=== PATIENT | male | born 1950 | race African-American/Black ===

== ENCOUNTER 2020-04-23 11:00 | Outpatient (RCR) | payer MEDICARE, SELFPAY ==
--- NOTE | 2020-06-02 09:55 | MHC.PT.DC ---
[facility] [place] [facility] [place] [facility] [place] [facility] [address]ay[address] [phone] F: [phone] F: [phone] F: [phone] F: [phone] Physical Therapy Discharge Report Diagnosis: S/P RIGHT TKA Date of Surgery: 02/11/20 Date of Evaluation: 02/11/20 Date of Discharge: 06/02/20 Treatments to Date: 8 Cancellations to Date: 2 No Shows to Date: 2 Discharge Status: Improved Function Patient Elected to Stop Discharge Summary: AT LAST ATTENDED VISITS CHRISTOPHER CONTINUED TO BE CHALLENGED WITH SLS ACTIVITIES AND BENEFITTED FROM CUING FOR IMPROVED FORM. ROM WAS IMPROVING BUT STILL LACKING END RANGE FLEXION. WE DISCUSSED AT LENGTH THE IMPORTANCE OF CONTINUED THERAPY AND COMPLIANCE WITH HEP TO ENSURE BEST OUTCOMES, Pt HOWEVER DID NOT SCHEDULE FURTHER VISITS. HE HAS NOT BEEN SEEN IN OUR OFFICE FOR OVER 30 DAYS AND IS DISCHARGED AT THIS TIME. Electronically signed by: ENEDINA TURCIOS PT, DPT Please sign and return to therapist. Thank you for your referral.
== END 2020-06-02 09:59 | disposition other institution (70) ==
LOC: HO.PT 11:00
PROVIDERS: PCP Family Medicine; Visit Provider Physician Assistant
DX: Z96.651 Presence of right artificial knee joint (principal)
CPT/HCPCS: 97110; 97530; 99212

== ENCOUNTER 2020-07-15 13:04 | Outpatient (REF) | payer MEDICARE, SELFPAY ==
[2020-07-15 14:41] LABS: Estimated Average Glucose 169 mg/dL; Hemoglobin A1c % 7.5 %
[2020-07-15 14:55] LABS: Anion Gap 14 (12-20); Blood Urea Nitrogen 15 mg/dL (9-16); Carbon Dioxide 29 mmol/L (22-29); Chloride 102 mmol/L (96-108); Estimated Glomerular Filt Rate > 60; Glucose Fasting 137 mg/dL (60-99); Potassium 4.1 mmol/l (3.3-5.1); Sodium 141 mmol/L (135-145)
[2020-07-15 15:04] LABS: Creatinine Urine 282.27 mg/dL; Microalbum/Creatinine Ratio Ur 20.5 ug/mg cr
== END 2020-07-15 13:05 | disposition home or self-care (01) ==
LOC: HO.LAB 13:04
PROVIDERS: PCP Family Medicine; Visit Provider Family Medicine
DX: I10 Essential (primary) hypertension (principal); E11.9 Type 2 diabetes mellitus without complications
CPT/HCPCS: 36415; 80051; 82043; 82565; 82947; 83036; 84520

== ENCOUNTER 2021-01-08 14:17 | Outpatient (REF) | payer MEDICARE, SELFPAY ==
[2021-01-08 16:06] LABS: Estimated Average Glucose 180 mg/dL; Hemoglobin A1c % 7.9 %
[2021-01-08 16:12] LABS: Alanine Aminotransferase 28 U/L (0-40); Anion Gap 13 (12-20); Aspartate Amino Transferase 26 U/L (5-37); Blood Urea Nitrogen 16 mg/dL (9-16); Carbon Dioxide 29 mmol/L (22-29); Chloride 102 mmol/L (96-108); Estimated Glomerular Filt Rate > 60; Glucose Fasting 143 mg/dL (60-99); Potassium 4.3 mmol/L (3.3-5.1); Sodium 140 mmol/L (135-145)
[2021-01-08 16:42] LABS: Prostate Specific Antigen 3.08 ng/mL (<0.05-4.0)
[2021-01-08 16:45] LABS: Creatinine Urine 214.82 mg/dL; Microalbum/Creatinine Ratio Ur 10.7 ug/mg cr
== END 2021-01-08 14:18 | disposition home or self-care (01) ==
LOC: HO.LAB 14:17
PROVIDERS: PCP Family Medicine; Visit Provider Family Medicine
DX: Z12.5 Encounter for screening for malignant neoplasm of prostate (principal); I10 Essential (primary) hypertension; E11.9 Type 2 diabetes mellitus without complications; R35.1 Nocturia
CPT/HCPCS: 36415; 80051; 82043; 82565; 82947; 83036; 84153; 84450; 84460; 84520

== ENCOUNTER 2021-08-04 12:28 | Outpatient (REF) | payer MEDICARE, SELFPAY ==
[2021-08-04 14:12] LABS: Estimated Average Glucose 194 mg/dL; Hemoglobin A1c % 8.4 %
[2021-08-04 14:27] LABS: Anion Gap 12 (12-20); Blood Urea Nitrogen 15 mg/dL (9-16); Carbon Dioxide 32 mmol/L (22-29); Chloride 104 mmol/L (96-108); Estimated Glomerular Filt Rate > 60; Glucose Fasting 127 mg/dL (60-99); Potassium 3.9 mmol/L (3.3-5.1); Sodium 144 mmol/L (135-145)
== END 2021-08-04 12:29 | disposition home or self-care (01) ==
LOC: HO.LAB 12:28
PROVIDERS: PCP Family Medicine; Visit Provider Family Medicine
DX: I10 Essential (primary) hypertension (principal); E11.9 Type 2 diabetes mellitus without complications
CPT/HCPCS: 36415; 80051; 82565; 82947; 83036; 84520

== ENCOUNTER → 2021-12-03 15:04 | Outpatient (REF) | payer MEDICARE, SELFPAY ==
--- NOTE | 2021-12-03 15:10 | ECG_ITS ---
Test Reason : WEAKNESS, SYNCOPE Blood Pressure : / mmHG Vent. Rate : 071 BPM Atrial Rate : 071 BPM P-R Int : 186 ms QRS Dur : 138 ms QT Int : 432 ms P-R-T Axes : 061 -54 036 degrees QTc Int : 469 ms Normal sinus rhythm Right bundle branch block Left anterior fascicular block Bifascicular block Abnormal ECG When compared with ECG of 10-JAN-2020 11:55, (RBBB and left anterior fascicular block) is now Present Referred By: Zachery Cordero Electronically Signed By:Pal Hurtado
== END ==
LOC: HO.CARD 15:04
PROVIDERS: PCP Family Medicine; Visit Provider Family Medicine
DX: R55 Syncope and collapse (principal); R53.1 Weakness; I45.2 Bifascicular block
CPT/HCPCS: 93005

== ENCOUNTER 2022-04-29 13:04 | Outpatient (REF) | payer MEDICARE, SELFPAY ==
[2022-04-29 13:14] LABS: MANUAL DIFF FLAG NO
[2022-04-29 14:14] LABS: Basophils Percent Auto 0.2 % (0-2); Eosinophils Absolute Auto 0.1 X10*3/uL (0.0-0.4); Eosinophils Percent Auto 2.9 % (0-4); Hematocrit 37.9 % (42.0-52.0); Hemoglobin 12.7 g/dl (14.0-18.0); Imm Gran Abs Auto 0.01 X10*3/uL (0.00-0.03); Imm Gran Pct Auto 0.2 % (0.0-0.4); Lymphocytes Absolute Auto 1.8 X10*3/uL (1.2-4.9); Lymphocytes Percent Auto 37.7 % (20-40); Mean Corpuscular HGB Conc 33.5 g/dl (31.0-36.0); Mean Corpuscular Hemoglobin 29.9 pg (27.0-33.0); Mean Corpuscular Volume 89.2 fL (80.0-98.0); Mean Platelet Volume 10.1 fL (9.4-12.4); Monocytes Absolute Auto 0.4 X10*3/uL (0.1-1.2); Monocytes Percent Auto 7.7 % (2-11); Neutrophils Absolute Auto 2.5 x10*3/uL (2.0-8.3); Neutrophils Percent Auto 51.3 % (45-73); Platelet Count 243 X10*3/uL (160-400); Red Blood Count 4.25 X10*6/uL (4.60-5.80); Red Cell Distribution Width 12.5 % (11.0-16.0); White Blood Count 4.8 X10*3/uL (4.8-10.8)
[2022-04-29 14:23] LABS: Estimated Average Glucose 186 mg/dL; Hemoglobin A1c % 8.1 %
[2022-04-29 15:00] LABS: Glucose Fasting 162 mg/dL (60-99); Iron 96 mcg/dL (45-160); Percent Iron Saturation 34 % (15-50); Total Iron Binding Capacity 282 mcg/dL (228-428); Unsaturated Iron Binding 186 ug/dL
[2022-04-29 15:23] LABS: Folate 9.6 ng/mL (> or = 4.0); Vitamin B12 471 pg/mL (200-900)
== END 2022-04-29 13:05 | disposition home or self-care (01) ==
LOC: HO.LAB 13:04
PROVIDERS: PCP Family Medicine; Visit Provider Family Medicine
DX: D64.9 Anemia, unspecified (principal); E11.9 Type 2 diabetes mellitus without complications
CPT/HCPCS: 36415; 82607; 82746; 82947; 83036; 83540; 85025

== ENCOUNTER 2022-06-11 13:08 | Outpatient (REF) | payer MEDICARE, SELFPAY ==
--- NOTE | ~2022-06-11 | XR_ITS ---
EXAMINATION: XR LUMBOSACRAL SPINE CLINICAL INFORMATION: Left sacroiliitis COMPARISON: None TECHNIQUE: Three views of the lumbosacral spine. FINDINGS: There is normal lumbar lordosis. The vertebral heights and alignment is normal. There is loss of L1-L2, L2-L3 L4-L5 and L5-S1 disc heights with large bridging osteophytes. No acute fracture, dislocation or lytic process seen. The SI joints are symmetrical and normal. XR/XR lumbar spine 2-3V IMPRESSION: Degenerative disc changes with large bridging osteophytes throughout lumbar spine. No visible acute fracture, dislocation or lytic process seen.
== END 2022-06-11 13:09 | disposition home or self-care (01) ==
LOC: HO.XRAY 13:08
PROVIDERS: PCP Family Medicine; Visit Provider Family Medicine
DX: M54.50 Low back pain, unspecified (principal)
CPT/HCPCS: 72100

== ENCOUNTER 2022-08-31 12:57 | Outpatient (REF) | payer MEDICARE, SELFPAY ==
[2022-08-31 14:03] LABS: Anion Gap 13 (12-20); Blood Urea Nitrogen 13 mg/dL (9-16); Carbon Dioxide 29 mmol/L (22-29); Chloride 102 mmol/L (96-108); Estimated Glomerular Filt Rate > 60; Glucose Fasting 179 mg/dL (60-99); Potassium 4.2 mmol/L (3.3-5.1); Sodium 140 mmol/L (135-145)
[2022-08-31 14:05] LABS: Creatinine Urine 318.53 mg/dL; Microalbum/Creatinine Ratio Ur 21.9 ug/mg cr
[2022-08-31 14:22] LABS: Estimated Average Glucose 177 mg/dL; Hemoglobin A1c % 7.8 %
== END 2022-08-31 12:58 | disposition home or self-care (01) ==
LOC: HO.LAB 12:57
PROVIDERS: PCP Family Medicine; Visit Provider Family Medicine
DX: I10 Essential (primary) hypertension (principal); E11.9 Type 2 diabetes mellitus without complications
CPT/HCPCS: 36415; 80051; 82043; 82565; 82947; 83036; 84520

== ENCOUNTER 2023-01-10 14:07 | Outpatient (REF) | payer OTHER, MEDICAID, SELFPAY ==
--- NOTE | ~2023-01-10 | XR_ITS ---
EXAMINATION: XR CERVICAL SPINE CLINICAL INFORMATION: Neck pain COMPARISON: 01/23/2016 TECHNIQUE: Lateral, AP, odontoid, swimmer's and bilateral oblique views of the cervical spine. FINDINGS: Degenerative changes in the imaged upper thoracic spine. Advanced multilevel degenerative changes in the cervical spine with hypertrophic change and loss of disc space height most notable at C5-C6 and C6-C7. Visualization of C5-C6-C7 is limited due to overlying soft tissues. Bilateral multilevel facet hypertrophy with neural foraminal encroachment at C6.-C4 through C6-C7 levels is difficult to fully evaluate due to patient positioning. XR/XR cervical spine 4V IMPRESSION: Advanced multilevel cervical spondylosis most notable at C5-C6 and C6-C7.
== END 2023-01-10 14:08 | disposition home or self-care (01) ==
LOC: HO.XRAY 14:07
PROVIDERS: PCP Family Medicine; Visit Provider Family Medicine
DX: M54.2 Cervicalgia (principal)
CPT/HCPCS: 72050

== ENCOUNTER 2023-01-24 09:30 | Outpatient (REF) | payer OTHER, SELFPAY ==
--- NOTE | ~2023-01-24 | CT_ITS ---
EXAMINATION: CT HEAD WITHOUT CONTRAST CLINICAL INFORMATION: Question infarction. COMPARISON: None available. TECHNIQUE: Contiguous axial imaging was performed from the skull base to vertex without intravenous administration of contrast. Multiplanar reformatted images are submitted. This CT examination was performed using dose optimization techniques as appropriate, variously including the following: *Automated exposure control *Adjustment of mA and/or kV according to patient size (this includes techniques or standardized protocols for targeted exams where dose is matched to indication/reason for exam; i.e. extremities or head) *Use of iterative reconstruction technique DLP: 767 mGy-cm FINDINGS: There is no acute intracranial hemorrhage or evidence of territorial infarction. No abnormal mass effect or midline shift is seen. Ji to white matter differentiation is well preserved. There is no abnormal attenuation within the brain parenchyma. The ventricles are normal in size. There is age-appropriate generalized sulcal widening. No extra-axial fluid collections are identified. The calvarium and scalp soft tissues are normal. The middle ear cavity and mastoid air cells are clear. The visualized paranasal sinuses are clear. CT/CT head/brain wo IV con IMPRESSION: No acute intracranial pathology.
== END 2023-01-24 09:31 | disposition home or self-care (01) ==
LOC: HO.CT 09:30
PROVIDERS: PCP Family Medicine; Visit Provider Family Medicine
DX: R47.02 Dysphasia (principal); I10 Essential (primary) hypertension; E11.21 Type 2 diabetes mellitus with diabetic nephropathy
CPT/HCPCS: 70450

== ENCOUNTER 2023-04-04 12:24 | Outpatient (REF) | payer OTHER, SELFPAY ==
[2023-04-04 13:06] LABS: Estimated Average Glucose 160 mg/dL; Hemoglobin A1c % 7.2 % (<6.0)
[2023-04-04 14:12] LABS: Alanine Aminotransferase 23 U/L (0-40); Anion Gap 16 (12-20); Aspartate Amino Transferase 29 U/L (5-37); Blood Urea Nitrogen 13 mg/dL (9-16); Carbon Dioxide 28 mmol/L (22-29); Chloride 100 mmol/L (96-108); Estimated Glomerular Filt Rate > 60; Glucose Fasting 143 mg/dL (60-99); Potassium 3.6 mmol/L (3.3-5.1); Sodium 140 mmol/L (135-145)
[2023-04-04 17:04] LABS: Creatinine Urine 300.06 mg/dL; Microalbum/Creatinine Ratio Ur 9.9 ug/mg cr (<30)
== END 2023-04-04 12:25 | disposition home or self-care (01) ==
LOC: HO.LAB 12:24
PROVIDERS: PCP Family Medicine; Visit Provider Family Medicine
DX: I10 Essential (primary) hypertension (principal); E11.9 Type 2 diabetes mellitus without complications; K75.81 Nonalcoholic steatohepatitis (NASH)
CPT/HCPCS: 36415; 80051; 82043; 82565; 82570; 82947; 83036; 84450; 84460; 84520

== ENCOUNTER 2023-06-02 12:06 | Outpatient (REF) | payer OTHER, SELFPAY ==
[2023-06-02 13:29] LABS: MANUAL DIFF FLAG NO
[2023-06-02 14:07] LABS: Basophils Percent Auto 0.2 % (0-2); Eosinophils Absolute Auto 0.3 X10*3/uL (0.0-0.4); Eosinophils Percent Auto 4.5 % (0-4); Hematocrit 40.1 % (42.0-52.0); Hemoglobin 13.1 g/dl (14.0-18.0); Imm Gran Abs Auto 0.02 X10*3/uL (0.00-0.03); Imm Gran Pct Auto 0.3 % (0.0-0.4); Lymphocytes Percent Auto 33.7 % (20-40); Mean Corpuscular HGB Conc 32.7 g/dl (31.0-36.0); Mean Corpuscular Hemoglobin 29.8 pg (27.0-33.0); Mean Corpuscular Volume 91.3 fL (80.0-98.0); Mean Platelet Volume 9.6 fL (9.4-12.4); Monocytes Absolute Auto 0.6 X10*3/uL (0.1-1.2); Monocytes Percent Auto 9.6 % (2-11); Neutrophils Percent Auto 51.7 % (45-73); Platelet Count 270 X10*3/uL (160-400); Red Blood Count 4.39 X10*6/uL (4.60-5.80); White Blood Count 5.8 X10*3/uL (4.8-10.8)
[2023-06-06 14:17] LABS: Hematocrit 39.1 % (38.5-50.0); Hemoglobin 13.2 g/dL (13.2-17.1); MCH 30.3 pg (27.0-33.0); MCV 89.7 fL (80.0-100.0); RBC 4.36 Million/uL (4.20-5.80); RDW 12.9 % (11.0-15.0)
== END 2023-06-02 12:07 | disposition home or self-care (01) ==
LOC: HO.LAB 12:06
PROVIDERS: PCP Family Medicine; Visit Provider Family Medicine
DX: D64.9 Anemia, unspecified (principal)
CPT/HCPCS: 36415; 83020; 83036; 85014; 85018; 85025; 85041

== ENCOUNTER 2023-08-12 16:02 | Outpatient (REF) | payer OTHER, SELFPAY ==
[2023-08-12 16:15] LABS: MANUAL DIFF FLAG NO
[2023-08-12 16:32] LABS: Basophils Percent Auto 0.2 % (0-2); Eosinophils Absolute Auto 0.2 X10*3/uL (0.0-0.4); Eosinophils Percent Auto 5.3 % (0-4); Hemoglobin 13.1 g/dl (14.0-18.0); Imm Gran Abs Auto 0.02 X10*3/uL (0.00-0.03); Imm Gran Pct Auto 0.5 % (0.0-0.4); Lymphocytes Absolute Auto 1.7 X10*3/uL (1.2-4.9); Lymphocytes Percent Auto 37.8 % (20-40); Mean Corpuscular HGB Conc 34.5 g/dl (31.0-36.0); Mean Corpuscular Hemoglobin 30.8 pg (27.0-33.0); Mean Corpuscular Volume 89.2 fL (80.0-98.0); Mean Platelet Volume 9.5 fL (9.4-12.4); Monocytes Absolute Auto 0.3 X10*3/uL (0.1-1.2); Monocytes Percent Auto 6.6 % (2-11); Neutrophils Absolute Auto 2.2 x10*3/uL (2.0-8.3); Neutrophils Percent Auto 49.6 % (45-73); Platelet Count 246 X10*3/uL (160-400); Red Blood Count 4.26 X10*6/uL (4.60-5.80); Red Cell Distribution Width 12.8 % (11.0-16.0); White Blood Count 4.4 X10*3/uL (4.8-10.8)
[2023-08-12 16:38] LABS: Estimated Average Glucose 143 mg/dL; Hemoglobin A1c % 6.6 % (<6.0)
[2023-08-12 17:31] LABS: Alanine Aminotransferase 22 U/L (0-40); Albumin Level 4.3 g/dL (3.5-5.0); Alkaline Phosphatase 77 U/L (39-117); Anion Gap 13 (12-20); Aspartate Amino Transferase 24 U/L (5-37); Bilirubin Total 0.4 mg/dL (0.0-1.0); Blood Urea Nitrogen 12 mg/dL (9-16); Calcium 9.7 mg/dL (8.4-10.2); Carbon Dioxide 29 mmol/L (22-29); Chloride 101 mmol/L (96-108); Estimated Glomerular Filt Rate > 60; Glucose Random 119 mg/dL (60-115); Potassium 3.9 mmol/L (3.3-5.1); Sodium 139 mmol/L (135-145); Total Protein 8.1 g/dL (6.5-8.0)
[2023-08-12 18:34] LABS: Creatinine Urine 299.82 mg/dL
== END 2023-08-12 16:03 | disposition home or self-care (01) ==
LOC: HO.LAB 16:02
PROVIDERS: PCP Family Medicine; Visit Provider Family Medicine
DX: Z01.818 Encounter for other preprocedural examination (principal); I10 Essential (primary) hypertension; I45.2 Bifascicular block; E11.9 Type 2 diabetes mellitus without complications; R53.83 Other fatigue
CPT/HCPCS: 36415; 80053; 82043; 82570; 83036; 85025

== ENCOUNTER → 2023-08-15 15:46 | Outpatient (REF) | payer OTHER, SELFPAY ==
--- NOTE | 2023-08-15 15:50 | ECG_ITS ---
Test Reason : Z01.818 I45.2 E11.9 R53.83 Blood Pressure : / mmHG Vent. Rate : 082 BPM Atrial Rate : 082 BPM P-R Int : 190 ms QRS Dur : 142 ms QT Int : 404 ms P-R-T Axes : 057 -60 039 degrees QTc Int : 472 ms Normal sinus rhythm Intermittent Right bundle branch block Left anterior fascicular block Abnormal ECG When compared with ECG of 03-DEC-2021 15:13, Right bundle branch block intermittent Referred By: Zachery Cordero Electronically Signed By:DONNA HENDRICKSON
== END ==
LOC: HO.CARD 15:46
PROVIDERS: PCP Family Medicine; Visit Provider Family Medicine
DX: Z01.818 Encounter for other preprocedural examination (principal); I10 Essential (primary) hypertension; I45.2 Bifascicular block; E11.9 Type 2 diabetes mellitus without complications; R53.83 Other fatigue
CPT/HCPCS: 93005

== ENCOUNTER → 2023-08-15 15:50 | Outpatient (BNV) | payer OTHER, SELFPAY | PROVIDERS: PCP Family Medicine; Visit Provider Internal Medicine | DX: I44.4 Left anterior fascicular block (principal); R94.31 Abnormal electrocardiogram [ECG] [EKG] | CPT/HCPCS: 93010 ==

== ENCOUNTER 2023-12-12 15:27 | Outpatient (REF) | payer OTHER, SELFPAY ==
[2023-12-12 15:42] LABS: MANUAL DIFF FLAG NO
[2023-12-12 16:06] LABS: Basophils Percent Auto 0.2 % (0-2); Eosinophils Absolute Auto 0.2 X10*3/uL (0.0-0.4); Eosinophils Percent Auto 3.6 % (0-4); Hematocrit 35.7 % (42.0-52.0); Hemoglobin 12.1 g/dl (14.0-18.0); Imm Gran Abs Auto 0.03 X10*3/uL (0.00-0.03); Imm Gran Pct Auto 0.6 % (0.0-0.4); Lymphocytes Absolute Auto 1.9 X10*3/uL (1.2-4.9); Lymphocytes Percent Auto 39.4 % (20-40); Mean Corpuscular HGB Conc 33.9 g/dl (31.0-36.0); Mean Corpuscular Hemoglobin 30.9 pg (27.0-33.0); Mean Corpuscular Volume 91.3 fL (80.0-98.0); Mean Platelet Volume 9.5 fL (9.4-12.4); Monocytes Absolute Auto 0.4 X10*3/uL (0.1-1.2); Monocytes Percent Auto 8.7 % (2-11); Neutrophils Absolute Auto 2.2 x10*3/uL (2.0-8.3); Neutrophils Percent Auto 47.5 % (45-73); Platelet Count 260 X10*3/uL (160-400); Red Blood Count 3.91 X10*6/uL (4.60-5.80); Red Cell Distribution Width 13.5 % (11.0-16.0); White Blood Count 4.7 X10*3/uL (4.8-10.8)
[2023-12-12 16:19] LABS: Estimated Average Glucose 157 mg/dL; Hemoglobin A1c % 7.1 % (<6.0)
[2023-12-12 16:39] LABS: Glucose Fasting 134 mg/dL (60-99); Iron 88 mcg/dL (45-160); Percent Iron Saturation 31 % (15-50); Total Iron Binding Capacity 282 mcg/dL (228-428); Unsaturated Iron Binding 194 ug/dL
[2023-12-12 16:52] LABS: Ferritin 167 ng/mL (20-250)
[2023-12-12 17:04] LABS: Vitamin B12 520 pg/mL (200-900)
== END 2023-12-12 15:28 | disposition home or self-care (01) ==
LOC: HO.LAB 15:27
PROVIDERS: PCP Family Medicine; Visit Provider Family Medicine
DX: D64.9 Anemia, unspecified (principal); E11.9 Type 2 diabetes mellitus without complications
CPT/HCPCS: 36415; 82607; 82728; 82746; 82947; 83036; 83540; 85025

== ENCOUNTER 2024-04-17 14:27 | Outpatient (REF) | payer OTHER, SELFPAY ==
[2024-04-17 14:41] LABS: MANUAL DIFF FLAG NO
[2024-04-17 15:26] LABS: Basophils Percent Auto 0.2 % (0-2); Eosinophils Absolute Auto 0.1 X10*3/uL (0.0-0.4); Eosinophils Percent Auto 3.1 % (0-4); Hemoglobin 12.3 g/dl (14.0-18.0); Imm Gran Abs Auto 0.02 X10*3/uL (0.00-0.03); Imm Gran Pct Auto 0.4 % (0.0-0.4); Lymphocytes Absolute Auto 1.6 X10*3/uL (1.2-4.9); Lymphocytes Percent Auto 35.9 % (20-40); Mean Corpuscular HGB Conc 33.2 g/dl (31.0-36.0); Mean Corpuscular Hemoglobin 29.4 pg (27.0-33.0); Mean Corpuscular Volume 88.5 fL (80.0-98.0); Mean Platelet Volume 9.5 fL (9.4-12.4); Monocytes Absolute Auto 0.3 X10*3/uL (0.1-1.2); Monocytes Percent Auto 6.4 % (2-11); Neutrophils Absolute Auto 2.4 x10*3/uL (2.0-8.3); Platelet Count 220 X10*3/uL (160-400); Red Blood Count 4.18 X10*6/uL (4.60-5.80); Red Cell Distribution Width 12.8 % (11.0-16.0); White Blood Count 4.5 X10*3/uL (4.8-10.8)
[2024-04-17 15:39] LABS: Estimated Average Glucose 180 mg/dL; Hemoglobin A1C 206.3844 umol/L; Hemoglobin A1c % 7.9 % (<6.0); Total Hemoglobin (HGBA1C) 3267.9548 umol/L
[2024-04-17 16:00] LABS: Anion Gap 13 (12-20); Blood Urea Nitrogen 14 mg/dL (9-16); Carbon Dioxide 29 mmol/L (22-29); Chloride 102 mmol/L (96-108); Estimated Glomerular Filt Rate 59; Glucose Random 155 mg/dL (60-115); Potassium 3.8 mmol/L (3.3-5.1); Sodium 140 mmol/L (135-145)
== END 2024-04-17 14:28 | disposition home or self-care (01) ==
LOC: HO.LAB 14:27
PROVIDERS: PCP Family Medicine; Visit Provider Family Medicine
DX: E11.9 Type 2 diabetes mellitus without complications (principal); I10 Essential (primary) hypertension; D64.9 Anemia, unspecified
CPT/HCPCS: 36415; 80051; 82565; 82947; 83036; 84520; 85025

== ENCOUNTER 2024-09-05 11:35 | Outpatient (REF) | payer OTHER, SELFPAY ==
[2024-09-05 12:26] LABS: Estimated Average Glucose 177 mg/dL; Hemoglobin A1c % 7.8 % (<6.0); Total Hemoglobin (HGBA1C) 3134.3102 umol/L
[2024-09-05 12:46] LABS: Anion Gap 12 (12-20); Blood Urea Nitrogen 20 mg/dL (9-16); Carbon Dioxide 30 mmol/L (22-29); Chloride 103 mmol/L (96-108); Estimated Glomerular Filt Rate > 60; Glucose Fasting 158 mg/dL (60-99); Magnesium 1.9 mg/dL (1.6-2.6); Potassium 3.6 mmol/L (3.3-5.1); Sodium 141 mmol/L (135-145)
== END 2024-09-05 11:36 | disposition home or self-care (01) ==
LOC: HO.LAB 11:35
PROVIDERS: PCP Family Medicine; Visit Provider Family Medicine
DX: I10 Essential (primary) hypertension (principal); E11.9 Type 2 diabetes mellitus without complications
CPT/HCPCS: 36415; 80051; 82565; 82947; 83036; 83735; 84520

== ENCOUNTER 2025-01-15 07:16 | Day surgery (SDC) | payer OTHER, SELFPAY ==
[2025-01-11 15:02] VITALS: BMI 36.5
--- NOTE | 2025-01-14 08:47 | HO.ANESPROP2 ---
Documented by User: Carolyn Rousseau NP 01/14/25 08:51 HPI - Anesthesia Eval Consult details Narrative: 74yo M for Colonoscopy Hx PE - eliquis BID PMFSH Active Problems Active Problems: All Active Problems Status post total knee replacement, right (Acute ~02/11/20) Past Medical History Medical History (Updated 01/14/25 @ 11:17 by Apurva Briggs LPN) COPD (chronic obstructive pulmonary disease) Hx pulmonary embolism RBBB (right bundle branch block) Type 2 diabetes mellitus Primary osteoarthritis of knees, bilateral Family History Family History (Updated 04/15/20 @ 08:18 by Jackelin Mendieta CMA) Father No problems noted. Mother Alzheimer disease Surgical History Surgical History History of surgical removal of ganglion cyst History of bilateral knee replacement Hx of lumbosacral spine surgery History of foot surgery Hx of colonoscopy (2019) Hx of detached retina repair (05/31/24) Status post total knee replacement, right (~02/11/20) Social History Social History Are you a primary ambulatory care coordinator to a significant other at home: No Do you presently have visiting nurse or other home services: No Patient Tobacco Use Status: Never used Tobacco Use of substances other than those prescribed or required for medical reasons: No Have you been hit, kicked, punched, or otherwise hurt by someone within the past year? If so, by whom?: No Are you DNR?: No Advance Directives: No Advance Directives Information Provided: Yes Advance Directives on File: No Current occupational status: unemployed Current occupation: Right Handed Meds Allergies Allergy/AdvReac Type Severity Reaction Status Date / Time atorvastatin (From LIPITOR) Allergy Intermediate COUGHING/PA Verified 01/15/25 07:37 IN cetirizine (From ZYRTEC) Allergy Intermediate LETHARGY Verified 01/15/25 07:37 diltiazem (From CARDIZEM) Allergy Intermediate LETHARGY Verified 01/15/25 07:37 ezetimibe (From ZETIA) Allergy Intermediate LETHARGY Verified 01/15/25 07:37 gabapentin (GABAPENTIN) Allergy Intermediate LETHARGY/CO Verified 01/15/25 07:37 NFUSION trazodone (TRAZODONE) Allergy Intermediate LETHARGY Verified 01/15/25 07:37 morphine (Morphine) AdvReac Intermediate VOMITING Verified 01/15/25 07:37 Home Medications ?Medication ?Instructions ?Recorded ?Confirmed ?Last Taken ?Type atenolol 25 mg tablet 25 mg PO DAILY 04/16/20 01/11/25 Unknown History bupropion HCl 150 mg 24 hr tablet, 150 mg PO QAM 04/16/20 01/11/25 Unknown History extended release doxazosin 4 mg tablet 4 mg PO BEDTIME 04/16/20 01/11/25 Unknown History hydrochlorothiazide 12.5 mg capsule 12.5 mg PO DAILY 04/16/20 01/11/25 Unknown History sertraline 100 mg tablet 100 mg PO DAILY 04/16/20 01/11/25 Unknown History apixaban 5 mg tablet (Eliquis) 5 mg PO BID 01/11/25 01/15/25 01/10/25 History Exam Height,Weight and Vital Signs: Height 5 ft 8 in Weight 108.862 kg Assessment and Plan Assessment Anesthesia Assessment: Chart Reviewed Documented by User: Deangelo Earl MD 01/15/25 08:11 [facility] Past Medical History Medical History (Updated 01/14/25 @ 11:17 by Apurva Briggs LPN) COPD (chronic obstructive pulmonary disease) Hx pulmonary embolism RBBB (right bundle branch block) Type 2 diabetes mellitus Primary osteoarthritis of knees, bilateral Family History Family History (Updated 04/15/20 @ 08:18 by Jackelin Mendieta CMA) Father No problems noted. Mother Alzheimer disease Family history of problems with anesthesia: No Surgical History Surgical History History of surgical removal of ganglion cyst History of bilateral knee replacement Hx of lumbosacral spine surgery History of foot surgery Hx of colonoscopy (2019) Hx of detached retina repair (05/31/24) Status post total knee replacement, right (~02/11/20) History of Problems with Anesthesia: No Social History Social History Are you a primary ambulatory care coordinator to a significant other at home: No Do you presently have visiting nurse or other home services: No Patient Tobacco Use Status: Never used Tobacco Use of substances other than those prescribed or required for medical reasons: No Have you been hit, kicked, punched, or otherwise hurt by someone within the past year? If so, by whom?: No Are you DNR?: No Advance Directives: No Advance Directives Information Provided: Yes Advance Directives on File: No Current occupational status: unemployed Current occupation: Right Handed Meds Allergies Allergy/AdvReac Type Severity Reaction Status Date / Time atorvastatin (From LIPITOR) Allergy Intermediate COUGHING/PA Verified 01/15/25 07:37 IN cetirizine (From ZYRTEC) Allergy Intermediate LETHARGY Verified 01/15/25 07:37 diltiazem (From CARDIZEM) Allergy Intermediate LETHARGY Verified 01/15/25 07:37 ezetimibe (From ZETIA) Allergy Intermediate LETHARGY Verified 01/15/25 07:37 gabapentin (GABAPENTIN) Allergy Intermediate LETHARGY/CO Verified 01/15/25 07:37 NFUSION trazodone (TRAZODONE) Allergy Intermediate LETHARGY Verified 01/15/25 07:37 morphine (Morphine) AdvReac Intermediate VOMITING Verified 01/15/25 07:37 Home Medications ?Medication ?Instructions ?Recorded ?Confirmed ?Last Taken ?Type atenolol 25 mg tablet 25 mg PO DAILY 04/16/20 01/11/25 Unknown History bupropion HCl 150 mg 24 hr tablet, 150 mg PO QAM 04/16/20 01/11/25 Unknown History extended release doxazosin 4 mg tablet 4 mg PO BEDTIME 04/16/20 01/11/25 Unknown History hydrochlorothiazide 12.5 mg capsule 12.5 mg PO DAILY 04/16/20 01/11/25 Unknown History sertraline 100 mg tablet 100 mg PO DAILY 04/16/20 01/11/25 Unknown History apixaban 5 mg tablet (Eliquis) 5 mg PO BID 01/11/25 01/15/25 01/10/25 History Exam Airway Mallampati Class: IV TM Dist: >3cm Neck ROM: Full Denture: Upper and Lower Assessment and Plan Assessment Anesthesia Assessment: Anesthesia Plan Discussed Final Anesthetic Review Family History of Problems with Anesthesia: No History of Problems with Anesthesia: No NPO: Yes ASA Class: III Final Preanesthetic Review: No Changes in Pt Med Stat, Meds/Allgs Chart Reviewed, Consent Obtained/Reviewed and Anes Risks/Benef Reviewed Patient Risk: Intermediate Procedure Risk: Low Anesthetic Plan Anesthetic Plan: TIVA Disposition: Standard PACU
[2025-01-15 07:47] VITALS: BP 170/56; PULSE 79; RESP 14; TEMP 36.7; O2SAT 99
[2025-01-15 08:00] LABS: Glucose, Whole Blood 149 mg/dL (60-115)
[2025-01-15] MEDS: Lactated Ringers 1,000 ML 80 ML IVCONT (08:01)
--- NOTE | 2025-01-15 08:15 | MHC.SHP ---
Pre-Procedural Eval Section A - 24 Hr Update-Section A only Date of Service: 01/15/25 The patient is an INPATIENT: No Changes since office visit: No Cold of Flu in the past 2 weeks, No New Medical Problems, No Changes in Medication and No Patient answered all questions The patient has been examined within 24 hours of the surgical procedure. The History & Physical has been completed within 30 days and I have reviewed it.: Yes Section B - Complete if H&P > 30 days Chief Complaint: screening Allergies: Allergies Allergy/AdvReac Type Severity Reaction Status Date / Time atorvastatin (From LIPITOR) Allergy Intermediate COUGHING/PA Verified 01/15/25 07:37 IN cetirizine (From ZYRTEC) Allergy Intermediate LETHARGY Verified 01/15/25 07:37 diltiazem (From CARDIZEM) Allergy Intermediate LETHARGY Verified 01/15/25 07:37 ezetimibe (From ZETIA) Allergy Intermediate LETHARGY Verified 01/15/25 07:37 gabapentin (GABAPENTIN) Allergy Intermediate LETHARGY/CO Verified 01/15/25 07:37 NFUSION trazodone (TRAZODONE) Allergy Intermediate LETHARGY Verified 01/15/25 07:37 morphine (Morphine) AdvReac Intermediate VOMITING Verified 01/15/25 07:37 Plan I have reviewed the history and physical and performed a pertinent physical examination on my patient. No changes have occurred unless specified. Time Spent With Patient Time: Total time managing care of this patient today ____ minutes.
--- NOTE | 2025-01-15 08:53 | P.BOP_ITS ---
Brief Operative Note Date of Service: 01/15/25 Pre-op diagnosis: screening Post-op diagnosis: same Procedure: colonoscopy Surgeon: Julius Gill MD Anesthesia: MAC Was an Learning And Development Manager used for this Procedure?: No Estimated blood loss (mL): 0 Pathology: none sent Condition: stable Disposition: PACU
[2025-01-15 08:58] VITALS: BP 129/54; PULSE 66; RESP 16; TEMP 36.7; O2SAT 98
[2025-01-15 09:13] VITALS: BP 140/74; PULSE 71; RESP 16; TEMP 36.8; O2SAT 100
--- NOTE | 2025-01-15 09:46 | OP_ITS ---
DATE OF SERVICE: 01/15/2025 SURGEON: Julius Gill MD INDICATIONS: Colon cancer screening and prior history of adenomatous colon polyps PREOPERATIVE DIAGNOSIS: POSTOPERATIVE DIAGNOSIS: PROCEDURE PERFORMED: Colonoscopy to the cecum. ESTIMATED BLOOD LOSS: COMPLICATIONS: ANESTHESIA: Monitored anesthesia care. ASSISTANTS: SPECIMENS: DESCRIPTION OF PROCEDURE: A history and physical was performed. The risks and benefits of the procedure were explained to the patient. Informed consent was obtained. The patient placed in the left lateral decubitus position. A digital rectal exam was performed and was found to be normal. The Olympus pediatric video colonoscope was introduced into the rectum and advanced to the cecum. The cecum was identified by transillumination, palpation, and identification of ileocecal valve. Examination was performed. The scope was removed. He tolerated the procedure well and was returned to the recovery area in stable condition. FINDINGS: The terminal ileum was examined and appeared normal. The visualized colonic mucosa was normal. The quality of the prep was good. There was mild sigmoid diverticulosis. Retroflexed examination showed some small internal hemorrhoids. IMPRESSION: Normal colonoscopy. RECOMMENDATION: 1. Follow up as needed. 2. Repeat colonoscopy is recommended in 10 years for average-risk individuals. This is optional based on the patient's age. MD BEN Barrera/COLETTEL / [phone]
== END 2025-01-15 09:41 | disposition home or self-care (01) ==
PROVIDERS: PCP Family Medicine; Visit Provider Internal Medicine Gastroenterology
PROC: 0DJD8ZZ Inspection of Lower Intestinal Tract, Via Natural or Artificial Opening Endoscopic (ICD-10-PCS; CPT 45378; principal; 2025-01-15 08:20)
DX: Z12.11 Encounter for screening for malignant neoplasm of colon (principal); Z86.0101 Personal history of adenomatous and serrated colon polyps; K57.30 Diverticulosis of large intestine without perforation or abscess without bleeding; K64.8 Other hemorrhoids; J44.9 Chronic obstructive pulmonary disease, unspecified; E11.9 Type 2 diabetes mellitus without complications; I45.10 Unspecified right bundle-branch block; F32.A Depression, unspecified; Z96.653 Presence of artificial knee joint, bilateral; Z86.711 Personal history of pulmonary embolism; Z79.01 Long term (current) use of anticoagulants; Z79.82 Long term (current) use of aspirin; Z79.899 Other long term (current) drug therapy; Z88.5 Allergy status to narcotic agent; Z88.8 Allergy status to other drugs, medicaments and biological substances; Z98.890 Other specified postprocedural states; Z56.0 Unemployment, unspecified
CPT/HCPCS: G0105; 82947; J2003; J2704

== ENCOUNTER 2025-02-27 13:51 | Outpatient (REF) | payer OTHER, SELFPAY ==
[2025-02-27 14:37] LABS: MANUAL DIFF FLAG NO
[2025-02-27 14:56] LABS: Hematocrit 35.4 % (42.0-52.0); Hemoglobin 12.3 g/dl (14.0-18.0); Imm Gran Abs Auto 0.01 X10*3/uL (0.00-0.03); Imm Gran Pct Auto 0.3 % (0.0-0.4); Lymphocytes Absolute Auto 1.4 X10*3/uL (1.2-4.9); Mean Corpuscular HGB Conc 34.7 g/dl (31.0-36.0); Mean Corpuscular Hemoglobin 30.7 pg (27.0-33.0); Mean Corpuscular Volume 88.3 fL (80.0-98.0); NRBC Abs Auto 0.000 X10*3/uL (0.0-0.012); NRBC Pct Auto 0.0 /100WBC (0.0-0.2); Platelet Count 212 X10*3/uL (160-400); Red Blood Count 4.01 X10*6/uL (4.60-5.80); White Blood Count 4.0 X10*3/uL (4.8-10.8)
[2025-02-27 15:44] LABS: Alanine Aminotransferase 24 U/L (0-40); Albumin Level 4.4 g/dL (3.5-5.0); Alkaline Phosphatase 81 U/L (39-117); Anion Gap 12 (12-20); Aspartate Amino Transferase 31 U/L (5-37); Blood Urea Nitrogen 13 mg/dL (9-16); Calcium 9.3 mg/dL (8.4-10.2); Carbon Dioxide 28 mmol/L (22-29); Chloride 105 mmol/L (96-108); Cholesterol 233 mg/dL (<200); Estimated Glomerular Filt Rate > 60; HDL Cholesterol 60 mg/dL (>40); Potassium 4.0 mmol/L (3.3-5.1); Sodium 141 mmol/L (135-145); Total Protein 7.8 g/dL (6.5-8.0); Triglycerides 114 mg/dL (<150)
[2025-02-28 08:47] LABS: Syphilis Screen Reactive (Nonreactive)
[2025-02-28 08:55] LABS: HBS Num1 0.86 mIU/mL (0-7.99); HBc Num1 4.93 S/CO (0.00-0.79); HBsAGNum1 0.35 S/CO (0.00-0.99); HIV Num 1 0.04 S/CO (0.00-0.99); Hepatitis A Antibody IgM 0.71 Index (0-0.79); Hepatitis B Surface Antigen Negative (Negative); ~HepC Num1 6.48 S/CO (0.00-0.79); ~Hepatitis A Antibody IgM Nonreactive (Nonreactive); ~Hepatitis B Surface Antibody NONREACTIVE (Nonreactive); ~Hepatitis C Antibody Reactive (Nonreactive)
[2025-02-28 10:10] LABS: HBc Num2 5.24 S/CO; HBc Num3 5.37 S/CO
[2025-03-01 05:13] LABS: Hepatitis B Core Antibody IgM NON-REACTIVE (NON-REACTIVE)
[2025-03-07 10:09] LABS: T.Pallidum Particle Agg Test Reactive (Nonreactive)
== END 2025-02-27 13:52 | disposition home or self-care (01) ==
LOC: HO.LAB 13:51
PROVIDERS: PCP Student in an Organized Health Care Education/Training Program; Visit Provider Student in an Organized Health Care Education/Training Program
DX: I10 Essential (primary) hypertension (principal); E11.9 Type 2 diabetes mellitus without complications; N40.1 Benign prostatic hyperplasia with lower urinary tract symptoms; G47.30 Sleep apnea, unspecified; F32.A Depression, unspecified; F41.9 Anxiety disorder, unspecified; Z79.01 Long term (current) use of anticoagulants; Z79.899 Other long term (current) drug therapy; Z86.711 Personal history of pulmonary embolism
CPT/HCPCS: 36415; 80053; 80061; 82306; 83036; 84443; 85025; 86592; 86704; 86705; 86706; 86709; 86780; 86803; 87340; 87389; 96127; 99202

== ENCOUNTER 2025-02-27 13:51 | Outpatient (AMB) | payer OTHER, SELFPAY ==
--- OUTSIDE RECORDS SUMMARY | 2025-01-15 04:20 | XMS_ITS ---
Author Organization [facility] Address [address] [place] [id number] Care Team Providers Care [employer] Consultant Name Role Phone PAULETTE AREVALO Primary Care Provider Julius Wills Jr REASON FOR VISIT screening Encounters Encounter Location Date Provider Diagnosis [facility] [address] [place] [id number] 01/15/2025 Julius Gill Jr Plan Of Treatment No Information Progress Notes * CHRISTOPHER ROMERODOB:[birth year] (74 yo M)Acc No.[id number]:01/15/2025 COLON WITH MAC Patient: CHRISTOPHER BRUNNER Provider: Phong Gill MD :1950 A ge:74 Y S ex:Male Date:01/15/2025 Address:[address] [place], [place] [id number] Pcp:PAULETTE AREVALO Subjective: * Chief Complaints: * 1 . Screening. * Medical History: Objective: * Vitals: Assessment: Plan: * Treatment: * * The named appointment provid er may or may not be the originator of this progress note, and it is not deemed complete until electronically signed by the appointment provider. Sign off status: Pending * Provider: Phong Gill MD Date: 01/15/2025 Generated for Auigei ng/Fapaulag/eTransmitting on: 0 02/27/2025 04:55 PM EDT
--- OUTSIDE RECORDS SUMMARY | 2025-02-15 04:20 | XMS_ITS ---
Author Organization [facility] Address [address] [place] [id number] Care Team Providers Care Certified Medical Technician Name Role Phone PAULETTE AREVALO Primary Care Provider Julius Wills Jr [phone] REASON FOR VISIT screening Encounters Encounter Location Date Provider Diagnosis [facility] [place] [address] [place] [id number] 02/15/2025 Julius Gill Jr Plan Of Treatment No Information Progress Notes * CHRISTOPHER ROMERODOB:[birth year] (74 yo M)Acc No.[id number]:02/15/2025 COLON WITH MAC Patient: CHRISTOPHER BRUNNER Provider: Phong Gill MD :1950 A ge:74 Y S ex:Male Date:02/15/2025 Address:[address] [place], [place] [phone] Pcp:PAULETTE AREVALO Subjective: * Chief Complaints: * 1 . Screening. * Medical History: Objective: * Vitals: Assessment: Plan: * Treatment: * * The named appointment provid er may or may not be the originator of this progress note, and it is not deemed complete until electronically signed by the appointment provider. Sign off status: Pending * Provider: Phong Gill MD Date: 02/15/2025 Generated for Kang ng/Fapaulag/eTransmitting on: 0 02/27/2025 04:55 PM EDT
[2025-02-27 13:24] VITALS: BP 138/80; PULSE 86; TEMP 36.2; O2SAT 98; BMI 37.9
--- NOTE | 2025-02-27 13:24 | A.OFFPC_ITS ---
Vital Signs 02/27/25 13:24 Height 5 ft 8 in Weight 249 lb BMI 37.9 BP 138/80 Blood Pressure Location Lt brachial Position Sitting Pulse 86 Pulse Source Pulse Oximeter Temp 97.1 F Temp Source Temporal Artery Scan Pulse Oximetry (%) 98 Oxygen Delivery Method Room Air Intake Visit Reasons: 3 MO F/UP - ALESHIA PT - FELIPA PAT Velocity Shooter Required: No Accompanied by: Self / Same As Patient Allergies atorvastatin (From LIPITOR) Allergy (Intermediate, Verified 02/27/25 13:24) COUGHING/PAIN cetirizine (From ZYRTEC) Allergy (Intermediate, Verified 02/27/25 13:24) LETHARGY diltiazem (From CARDIZEM) Allergy (Intermediate, Verified 02/27/25 13:24) LETHARGY ezetimibe (From ZETIA) Allergy (Intermediate, Verified 02/27/25 13:24) LETHARGY gabapentin (GABAPENTIN) Allergy (Intermediate, Verified 02/27/25 13:24) LETHARGY/CONFUSION trazodone (TRAZODONE) Allergy (Intermediate, Verified 02/27/25 13:24) LETHARGY morphine (Morphine) Adverse Reaction (Intermediate, Verified 02/27/25 13:24) VOMITING Medication List - Last Reconciled 02/27/25 by Brandon Pat MD apixaban (Eliquis) 5 mg PO BID bupropion HCl XL 150 mg PO QAM doxazosin 4 mg PO BEDTIME hydrochlorothiazide 12.5 mg PO DAILY sertraline 100 mg PO DAILY Tobacco use date assessed: 02/27/25 Fall risk assessment: No Falls in past year Last assessed Fall Risk: 02/27/25 Dental Screening Dental Screen Date: 02/27/25 Did you have a dental visit in the last 12 months?: No Did you have a dental problem in the last 6 months where you did not have access to dental care?: No HPI HPI Comments History of Present Illness Details The patient is a 74-year-old male presenting for a follow-up visit concerning the management of his chronic conditions and overall health maintenance. He reports a past episode of a pulmonary embolism which occurred in November of this year, necessitating hospitalization for intervention at [facility]. He currently takes Eliquis as anticoagulation therapy following this event, although the duration of therapy was not specified at the time. Notably, the patient denies any history of Chronic Obstructive Pulmonary Disease (COPD), contrary to prior records but uses a CPAP machine for obstructive sleep apnea management and acknowledges no current respiratory difficulties without it. He also discusses his diagnosis of diabetes mellitus, which remains controlled through dietary measures; he discloses no insulin use at present and describes his blood sugar levels as borderline. The patient mentions essential hypertension, for which he takes hydrochlorothiazide and metoprolol succinate. He formerly used atenolol but has since discontinued it. He is also under treatment for major depressive disorder and anxiety disorder, managed primarily with psychiatric medications including bupropion and sertraline. Anxiety symptoms persist occasionally, but the patient maintains therapeutic engagement and feels stable. Additionally, he has benign prostatic hyperplasia, managed with doxazosin, without current urinary complaints. Medical History: - Pulmonary Embolism - Obstructive Sleep Apnea - Diabetes Mellitus, Diet Controlled - Essential Hypertension - Major Depressive Disorder - Anxiety Disorder - Benign Prostatic Hyperplasia Surgical History: - Blood clot removal - Bilateral knee replacements - Foot reconstruction Medications: - Eliquis for Pulmonary Embolism - Hydrochlorothiazide 25 mg for Essentia l Hypertension - Metoprolol Succinate for Essential Hyp ertension - Bupropion for Major Depressive Disorde r - Sertraline for Major Depressive Disord er - Doxazosin for Benign Prostatic Hyperpl bill Family History: - Cancer in paternal aunts (unknown type ) - Alcohol-related illness in father - Diabetes in maternal grandmother Social: - Denies smoking history; tried smoking in adolescence - Denies marijuana, cocaine, or heroin u se - Reports decreased physical activity an d energy - Wide engagement in therapy sessions fo r mood stabilization PFSH Medical History (Updated 02/27/25 @ 14:39 by Brandon Pat MD) BPH (benign prostatic hyperplasia) Anxiety Depression Sleep apnea Hypertension COPD (chronic obstructive pulmonary disease) Hx pulmonary embolism RBBB (right bundle branch block) Type 2 diabetes mellitus Primary osteoarthritis of knees, bilateral Surgical History History of surgical removal of ganglion cyst History of bilateral knee replacement Hx of lumbosacral spine surgery History of foot surgery Hx of colonoscopy (2019) Hx of detached retina repair (05/31/24) Status post total knee replacement, right (~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 Mother Alzheimer disease Social History Household Members: Spouse Housing: House Are you a primary intensive care medicine specialist to a significant other at home: No Do you presently have visiting nurse or other home services: No Patient Tobacco Use Status: Never used Tobacco e-Cigarette/Vaping Use: Never Used service: No Current occupational status: retired Current occupation: Right Handed Cognitive needs: No Hearing needs: No Vision needs: Yes (RX GLASSES) Questionnaire PHQ-9 Over the last 2 weeks, how often have you been bothered by any of the following problems? 1. Little interest or pleasure in doing things: not at all 2. Feeling down, depressed, or hopeless: not at all 3. Trouble falling or staying asleep, or sleeping too much: not at all 4. Feeling tired or having little energy: not at all 5. Poor appetite or overeating: not at all 6. Feeling bad about yourself - or that you are a failure or have let yourself or your family down: not at all 7. Trouble concentrating on things, such as reading the newspaper or watching television: not at all 8. Moving or speaking so slowly that other people could have noticed. Or the opposite - being so fidgety or restless that you have been moving around a lot more than usual: not at all 9. Thoughts that you would be better off or of hurting yourself in some way: not at all Total score: 0 Depression Screening Interpretation: Negative Depression Screening Done: Yes 10094 - PHQ-9 Billing: Yes Source: Developed by Drs. Toby Perez, Lou Solis, Lj Pathak and colleagues, with an educational roberto carlos from [employer]. Thrive Questionnaire Date Thrive assessed: 02/27/25 I am a: Patient Within the past 12 months, did the food you bought not last and you didn't have the money to get more?: Never true Within the past 12 months, did you worry whether your food would run out before you got money to buy more?: Never true Do you have trouble paying for medicines?: No Do you have trouble getting transportation to medical appointments?: No Do you have trouble paying your heating and electricity bill?: No Do you have trouble taking care of your child, family member or friend?: No Do you have trouble with day-to-day activities such as bathing, preparing meals, shopping, managing finances, etc.?: No Are you currently unemployed and looking for a job?: No Are you interested in more education?: No THRIVE Score: 0 AUDIT C Alcohol Use Questionnaire (AUDIT-C) 1. How often do you have a drink containing alcohol?: Monthly or less 2. How many drinks containing alcohol do you have on a typical day when you are drinking?: 1 or 2 3. How often do you have six or more drinks on one occasion?: Less than monthly Total Score: 2 Score Reviewed/Action Taken: Yes AFSANEH-7 AMB Questionnaire AFSANEH-7 Date AFSANEH - 7 assessed: 02/27/25 Feeling nervous, anxious, or on edge: 1 = Several days (SOMETIMES) Not being able to stop or control worryin = Not at all Worrying too much about different things: 0 = Not at all Trouble relaxin = Not at all Being so restless that it is hard to sit still: 0 = Not at all Becoming easily annoyed or irritable: 0 = Not at all Feeling afraid as if something awful might happen: 0 = Not at all Total AFSANEH-7 score (0-4 normal; 5-9 mild; 10-14 moderate; 15-21 severe): 1 Source: Developed by Drs. Toby Perez, Lou Solis, Lj Pathak and colleagues, with an educational roberto carlos from [employer]. AFSANEH-7 Assessment Billing AFSANEH-7 Assessment Tool: AFSANEH-7 Assessment 60314 Review of Systems Const Details: - Respiratory: Denies shortness of breath - Cardiovascular: Denies chest pain - Gastrointestinal: Denies nausea and vomiting - Neurological: Denies headaches, vision changes - Musculoskeletal: Reports generalized weakness and decreased energy All systems reviewed & are unremarkable except as reviewed in HPI and above Physical exam (Primary Care) Vital Signs: Last Vital Signs Temp 97.1 F 02/27/25 13:24 Pulse 86 02/27/25 13:24 BP 138/80 02/27/25 13:24 Pulse Ox 98 02/27/25 13:24 Oxygen Delivery Method Room Air 02/27/25 13:24 BMI result Body Mass Index 37.9 Tobacco/Smoking Status: Tobacco use Status Tobacco use date assessed 02/27/25 02/27/25 13:26 Patient Tobacco Use Status Never used Tobacco 02/27/25 13:26 e-Cigarette/Vaping Use Never Used 02/27/25 13:26 PHQ-9: PHQ-9 Score PHQ-9: Total score 0 02/27/25 14:00 Depression Screening Interpretation: Negative Thrive Assessment: Date of Thrive Assessment Date Thrive assessed 02/27/25 02/27/25 13:26 Const Other: General: +Alert and oriented, Well nourished, No acute distress. Eye: Pupils are equal, round and reactive to light, Intact accommodation, Extraocular movements are intact, Normal conjunctiva, Vision unchanged. HENT: Normocephalic, Atraumatic, Tympanic membranes are clear, Normal hearing, Oral mucosa is moist, No pharyngeal erythema, Ear canals patent. Respiratory: Lungs CTA bilaterally, No wheeze, Respirations are non-labored. Cardiovascular: Regular rate, Regular rhythm, S1 auscultated, S2 auscultated, No murmur, Good pulses equal in all extremities, Normal peripheral perfusion, No edema. Gastrointestinal: Soft, Non-tender, Non-distended, Normal bowel sounds, No organomegaly. Musculoskeletal: Normal range of motion, Normal strength, No tenderness, No swelling, No deformity, Normal gait. Integumentary: Warm, Dry, [place], Intact. Neurologic: Alert, Oriented, Normal sensory, Normal motor function, No focal defects, Cranial Nerves II-XII are grossly intact, Normal deep tendon reflexes. Psychiatric: Cooperative, Appropriate mood & affect, Normal judgment. Coding Level of Care Code New Pt Level 4 (37847) Complex EM visit Add On G2211 Diagnoses Hypertension, unspecified type I10 Hypertension type: unspecified Hx pulmonary embolism Z86.711 Sleep apnea, unspecified type G47.30 Sleep apnea type: unspecified type Type 2 diabetes mellitus without complication, without long-term current use of insulin E11.9 Diabetes mellitus jail insulin use: without terminal gauger supervisor use Diabetes mellitus complication status: without complication Depression, unspecified depression type F32.A Depression Type: unspecified Anxiety F41.9 Benign prostatic hyperplasia with lower urinary tract symptoms, symptom details unspecified N40.1 Lower urinary tract symptom presence: symptoms present Lower urinary tract symptom detail: unspecified Additional Codes PHQ-9 - 99120 - PHQ-9 Billing: Yes ([id number]) AFSANEH-7 Assessment Billing - AFSANEH-7 Assessment Tool: AFSANEH-7 Assessment 28440 ([id number]) Assessment & Plan Assessment & Plan (1) Hypertension: Comment: - Continue hydrochlorothiazide 25 mg and metoprolol succinate. Regular blood pressure monitoring. - Pressures well controoled Code(s): I10 - Essential (primary) hypertension Category: Medical Qualifiers: Hypertension type: unspecified Qualified Code(s): I10 - Essential (primary) hypertension (2) Hx pulmonary embolism: Comment: - 11/2023 s/p thrombectomy, been on eliquis - Continue Eliquis. Referral to a equity holder for future management and determination of anticoagulation duration. Code(s): Z86.711 - Personal history of pulmonary embolism Category: Medical (3) Sleep apnea: Comment: - Continue CPAP therapy at night. Code(s): G47.30 - Sleep apnea, unspecified Category: Medical Qualifiers: Sleep apnea type: unspecified type Qualified Code(s): G47.30 - Sleep apnea, unspecified (4) Type 2 diabetes mellitus: Comment: - Continue diet management. Monitor blood glucose levels with regular follow- ups. - Order A1c Code(s): E11.9 - Type 2 diabetes mellitus without complications Category: Medical Qualifiers: Diabetes mellitus terminal gauger supervisor insulin use: without terminal gauger supervisor use Diabetes mellitus complication status: without complication Qualified Code(s): E11.9 - Type 2 diabetes mellitus without complications (5) Depression: Comment: - Continue bupropion and sertraline. Follow-up with a psychiatrist as needed. Code(s): F32.A - Depression, unspecified Category: Medical Qualifiers: Depression Type: unspecified Qualified Code(s): F32.A - Depression, unspecified (6) Anxiety: Comment: - Continue psychiatric medications. Encourage continuation of therapy sessions. Code(s): F41.9 - Anxiety disorder, unspecified Category: Medical (7) BPH (benign prostatic hyperplasia): Comment: - Continue doxazosin. Monitor urinary symptoms and adjust treatment as needed. Code(s): N40.0 - Benign prostatic hyperplasia without lower urinary tract symptoms Category: Medical Qualifiers: Lower urinary tract symptom presence: symptoms present Lower urinary tract symptom detail: unspecified Qualified Code(s): N40.1 - Benign prostatic hyperplasia with lower urinary tract symptoms Plan I discussed with the patient the importance of adhering to the prescribed medication regimen for each chronic condition. We outlined the need for a equity holder's consultation regarding the continuation of Eliquis and reassured the patient that the extended use of anticoagulation may not always be necessary. The patient and I reviewed his psychiatric management and confirmed his satisfaction with the current medication regimen and therapy engagements. Orders: Orders Complete Blood Count Auto Diff Today I10 - Essential (primary) hypertension Comprehensive Met. Panel Today I10 - Essential (primary) hypertension Hemoglobin A1c Today I10 - Essential (primary) hypertension Hepatitis A,B,C Profile Today I10 - Essential (primary) hypertension Vitamin D 25-OH Total Today I10 - Essential (primary) hypertension Lipid Panel Today I10 - Essential (primary) hypertension Syphilis Screen Today I10 - Essential (primary) hypertension TSH reflex Free T4 Today I10 - Essential (primary) hypertension HIV Ab/Ag Today I10 - Essential (primary) hypertension Referrals Hematology & Oncology Referral Z86.035 - Personal history of pulmonary embolism Medications: New metoprolol succinate ER 25 mg PO DAILY Changed From hydrochlorothiazide 12.5 mg PO DAILY To hydrochlorothiazide 25 mg PO DAILY Patient Instructions: - Continue all current medications as prescribed. - Adhere to dietary recommendations for diabetes management. - Maintain CPAP use nightly. - Keep scheduled appointments with the equity holder. - Schedule follow-up in six months or earlier if symptoms change. - Continue physical activity to support general health. - Seek medical care if experiencing new or worsening symptoms, such as chest pain or shortness of breath.
--- OUTSIDE RECORDS SUMMARY | 2025-02-27 16:55 | XMS_ITS | Patient Health Record ---
Author Organization [facility] Address [address] [place] [phone] Care Team Providers Care Electrical And Instrumentation Mechanic Name Role Phone PAULETTE AREVALO Primary Care Provider Julius Wills Jr Unavailable Allergies No Known Allergies Results Component Value Reference Range Notes Glucose, Whole Blood Reviewed date:01/15/2025 05:04:05 PM Interpretation: Performing Lab:[facility], [address] [place] [id number] Notes/Report: Glucose, Whole Blood 149 60-115 mg/dL METER # : [id number] Reason For Referral No Information Medications Medication SIG (Take, Route, Frequency, Duration) Notes Start Date End Date Status buPROPion HCl ER (Smoking De t) 150 MG 1 tablet in the morning Orally Once a day Active hydroCHLOROthiazide 25 MG 1 tablet in th e morning Orally Once a day for 30 day(s) Active Doxazosin Mesylate 4 MG 1 tablet Orally Once a day for 30 day(s) Active Metoprolol Succinate 25 MG 1 capsule Ora lly Once a day for 30 days Active Wellbutrin 150 1 tablet orally once a day Active Immunizations Vaccine Route Administration Date Status Comme nts Influenza Unknown 02/18/2019 Administered Influenza Unknown 12/24/2024 Refused Social History Tobacco Use: Social History Observation Description Date Details (start date - stop date) Never Smoker NA - NA Tobacco Use/Smoking Question Answer Notes Patient is a nonsmoker Alcohol Screen Question Answer Notes Did you have a drink contain ing alcohol in the past year? Yes How often did you have a dri nk containing alcohol in the past year? Monthly or less (1 point) How many drinks did you have on a typical day when you were drinking in the past year? 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 (Z79.899) Active confirmed Vital Signs Temperature 96.9 degrees Fahrenheit 12/24/2024 Blood pressure diastolic 01 mm Hg 12/24/2024 Height 67 in 12/24/2024 Blood pressure systolic 001 mm Hg 12/24/2024 Weight 243.6 lbs 12/24/2024 BMI 38.15 kg/m2 12/24/2024 Encounters Encounter Location Date Provider Diagnosis [facility] Outpatient [address] [place] [id number] 01/15/2025 Julius Gill Jr [facility] [address] [place] [phone] 12/24/2024 Julius Gill Jr Colon cancer screening Z12.11 ; exterminator termite current use of diuretic Z79.899 ; Long-term use of aspirin therapy Z79.82 and Personal history of colonic polyps Z86.010 [facility] [address] [place] [phone] 11/20/2024 Julius Gill Jr [facility] [address] [place] [phone] 01/08/2025 Julius Gill Jr [facility] [address] [place] [phone] 01/08/2025 Julius Gill Jr [facility] [address] [place] [phone] 01/11/2025 Julius Gill Jr [facility] [address] [place] [phone] 01/11/2025 Julius Gill Jr Assessments Encounter Date Diagnosis (ICD Code) Assessment Notes Treatment Notes Treatment Clinical Notes Section Notes 12/24/2024 Colon cancer screening (ICD-10 - Z12.11) We discussed colonoscopy today. We discussed risks and benefits of the procedure today. He understands these and agrees to proceed. He is advised to stop taking aspirin 1 week before the procedure. He was advised to stop using diuretics the day before the prep. He understands these instructions. 12/24/2024 care home current use of diuretic (ICD-10 - Z79.899) We discussed colonoscopy today. We discussed risks and benefits of the procedure today. He understands these and agrees to proceed. He is advised to stop taking aspirin 1 week before the procedure. He was advised to stop using diuretics the day before the prep. He understands these instructions. 12/24/2024 Long-term use of aspirin therapy (ICD-10 - Z79.82) We discussed colonoscopy today. We discussed risks and benefits of the procedure today. He understands these and agrees to proceed. He is advised to stop taking aspirin 1 week before the procedure. He was advised to stop using diuretics the day before the prep. He understands these instructions. 12/24/2024 Personal history of colonic polyps (ICD-10 - Z86.010) We discussed colonoscopy today. We discussed risks and benefits of the procedure today. He understands these and agrees to proceed. He is advised to stop taking aspirin 1 week before the procedure. He was advised to stop using diuretics the day before the prep. He understands these instructions. Plan Of Treatment Future Test Test Name Order Date COLONOSCOPY 08/30/2019 COLONOSCOPY 12/24/2024 Insurance Providers Payer Name Payer Address Payer Phone Subscriber Number Group Number Insured Name Patient Relationship to Insured Coverage Start Date Coverage End Date [facility] [address] Attn Claims KESHA Pineda [id number] CHRISTOPHER ROMERO Self - patient is the insured Medical (General) History Medical History History ICD Code hypertension WAYNE/CPAP type II diabetes depression Colonoscopy 10/2019, hyperpla stic polyp, 5-year follow-up for prior history of polyps. Surgical History Surgery Date(Month/Year) left knee replacement Lipoma resections
--- OUTSIDE RECORDS SUMMARY | 2025-02-27 16:55 | XMS_ITS | Clinical Summary ---
Author Organization [address] [facility] Address [address] [place] [address] Phone Care Team Providers Care Medical Scientific Liaison Name Role Phone Zachery Cordero MD Primary Care Provider [phone] Allergies No known active allergies Medications miconazole nitrate 2 % aerosol,spray Apply 1 applicator topically 1 (one) time each day. 4 Active oxyCODONE (ROXICODONE) 5 mg immediate release tablet Take 1 tablet (5 mg total) by mouth every 4 (four) hours if needed. Max Daily Amount: 30 mg 4 Active oxyCODONE (ROXICODONE) 5 mg immediate release tablet Take 1 tablet (5 mg total) by mouth every 6 (six) hours if needed. Max Daily Amount: 20 mg 4 Active gabapentin (NEURONTIN) 400 mg capsule Take 1 Capsule by mouth 2 times daily for 90 days. 4 Active acetaminophen (TYLENOL) 325 mg tablet Take 2 Tablets by mouth every 6 hours as needed for Pain (mild to moderate pain) for up to 10 days. 4 Active aspirin 325 mg tablet Take 1 tablet (325 mg total) by mouth 1 (one) time each day. 4 Active clotrimazole (LOTRIMIN) 1 % cream Apply to skin and toenails daily for 12 weeks 3 Active diclofenac (VOLTAREN) 1 % topical gel Apply 4 g topically 2 (two) times a day. 3 Active metoprolol succinate (TOPROL-XL) 25 mg 24 hr tablet Take 1 tablet (25 mg total) by mouth 1 (one) time each day. Active buPROPion SR (WELLBUTRIN SR) 150 mg 12 hr tablet Take 1 tablet (150 mg total) by mouth 1 (one) time each day. Active sertraline (ZOLOFT) 100 mg tablet Take 100 mg by mouth daily. 1 1/2 tabs at bedtime Active doxazosin (CARDURA) 4 mg tablet Take 1 tablet (4 mg total) by mouth at bedtime. Active hydroCHLOROthia zide (HYDRODIURIL) 25 mg tablet Take 1 tablet (25 mg total) by mouth 1 (one) time each day. Active Active Problems Problem Noted Date Diagnosed Date Fatigue 01/01/2022 Overview (04/13/2024): Last Assessment & Plan: Patient went to the emergency room complain about fatigue has multiple risk factors for atherosclerotic coronary disease. We will send the patient for stress echocardiogram to rule out the possibility of ischemia as the etiology of his symptoms. Bifascicular bundle branch block 12/31/2021 Abnormal EKG 12/31/2021 PVC's (premature ventricular contractions) 12/31 High blood pressure 12/31/2021 High cholesterol 12/31/2021 Medical History Medical History Date Comments Weakness DX:Weakness Insomnia DX:Insomnia Depression DX:Depression Muscle spasm DX:Muscle spasm Back pain DX:Back pain Bilateral plantar fasciitis DX:B ilateral plantar fasciitis Fracture of right wrist DX:Fract ure of right wrist BPH (benign prostatic hyperplasia) DX:BPH (benign prostatic hyperplasia) Obstructive sleep apnea on CPAP DX:Obstructive sleep apnea on CPAP Ventral hernia DX:Ventral herni a Diabetes (CMS/HCC V24, CMS/HCC V28) DX:Diabetes (HCC) Lipoma DX:Lipoma Osteoarthritis DX:Osteoarthriti s GERD (gastroesophageal reflux disease) DX:GERD (gastroesophageal reflux disease) Social History Tobacco Use Types Packs/Day Years Used Date Smoking Tobacco: Never Smokeless Tobacco: Never Alcohol Use Standard Drinks/Week Comments Yes 0 (1 standard drink = 0.6 oz pur e alcohol) Sex and Gender Information Value Date Recorded Sex Assigned at Not on file Legal Sex Male 4:46 AM EST Gender Identity Not on file Sexual Orientation Not on file Obstetrics History Last Filed Vital Signs Vital Sign Reading Time Taken Comments Blood Pressure 106/70 01/01/2022 8:30 AM EDT Sit ting R Arm Pulse 94 01/01/2022 8:30 AM EDT Temperature - - Respiratory Rate - - Oxygen Saturation - - Inhaled Oxygen Concentration - - Weight 108 kg (238 lb) 04/12/2024 1:44 PM EDT Height 170.2 cm (5' 7 ) 01/24/2024 10:27 AM EDT Body Mass Index 37.28 01/24/2024 10:27 AM EDT Plan of Treatment Health Maintenance Due Date Last Done Comments DTaP,Tdap,and Td Vaccines (1 - Tdap) 12/06/1970 Pneumococcal Vaccine: 50+ Ye ars (1 of 1 - PCV) 12/06/2001 Zoster Vaccines (1 of 2) 12/06/2001 Abdominal Aortic Aneurysm (A AA) Screen 05/23/2022 Cholesterol Screening (Lipid Panel) 05/23/2022 Colorectal Cancer Screening: Colonoscopy 05/23/2022 Falls Risk Assessment 05/23/2022 Hepatitis C Screening 05/23/2022 Social Influencers of Health Screening 05/23/2022 Hypertension/CHF/CAD Annual BMP Blood Test 06/05/2022 Depression Screening 06/20/2024 COVID-19 Vaccine (1 - 2023-2 5 season) 2025 Influenza Vaccine (#1) 2025 RSV Immunization Adult Patie nts (1 - 1-dose 75+ series) 12/06/2026 HIB Vaccines Aged Out No longer eligi ble based on patient's age to complete this topic HPV Vaccines Aged Out No longer eligi ble based on patient's age to complete this topic Hepatitis A Vaccines Aged Out No long er eligible based on patient's age to complete this topic Hepatitis B Vaccines Aged Out No long er eligible based on patient's age to complete this topic IPV Vaccines Aged Out No longer eligi ble based on patient's age to complete this topic MMR Vaccines Aged Out No longer eligi ble based on patient's age to complete this topic Meningococcal ACWY Vaccine Aged Out N o longer eligible based on patient's age to complete this topic Meningococcal B Vaccine Aged Out No l onger eligible based on patient's age to complete this topic RSV Immunization Patients Un alycia 20 months Aged Out No longer eligible b ased on patient's age to complete this topic Varicella Vaccines Aged Out No longer eligible based on patient's age to complete this [place] [address] [facility] Member Subscriber Plan / Payer (Ef fective 2022-Present) Name:Byron Greg F Relation to Subscriber:Self Name:Greg Matthews Swetha Payer ID:[id number] Group ID:[id number] Type:Not on file Address: [place] [address] [place] [address] Care Teams Medical Scientific Liaison Relationship Specialty Start Date End Date Zachery Cordero MD [address] [place] [address] [place] [address] PCP - General Internal Medicine 12/09/21
--- OUTSIDE RECORDS SUMMARY | 2025-02-27 16:55 | XMS_ITS | Patient Health Record ---
Author Organization [facility] [place] Address [address] [place] [address] Care Team Providers Care Hosiery Looper Name Role Phone Zachery Cordero MD Primary Care Provider Vernon Quintero Unavailable [phone] Allergies No Known Allergies Reason For Referral No Information Medications Medication SIG (Take, Route, Frequency, Duration) Notes Start Date End Date Status hydroCHLOROthiazide 25 MG Oral; Duration : 21 Days Active Metoprolol Succinate ER 25 MG Oral; Dura tion: 90 Days Active Baby Aspirin 03/22/2023 Active buPROPion HCl ER (SR) 150 MG TAKE 1 TABL ET BY MOUTH DAILY Oral; Duration: 90 Days Active Ciclopirox Olamine 0.77 % 1 application to affected area Externally Twice a day to effected areas on feet; Duration: 30 days 04/06/2023 Active Doxazosin Mesylate 4 MG Oral; Duration: 90 Days Active Sertraline HCl 100 MG TAKE 2 TABLETS BY MOUTH DAILY Oral; Duration: 30 Days Active Social History Tobacco Use: Social History Observation Description Date Details (start date - stop date) Never Smoker NA - NA Tobacco Use/Smoking Question Answer Notes Are you a: nonsmoker Additional Findings: Tobacco Non-User Current no n-smoker Tobacco use other than smoking: Question Answer Notes Are you an other tobacco user? No Problems Problem Type SNOMED Code ICD Code Onset Dates Problem Status W/U Status Risk Notes Problem Localized, primary osteoarthritis of the ankle and/or foot (499007557) Osteoarthritis of right foot, unspecified osteoarthritis type (M19.071) Active confirmed Problem Localized, primary osteoarthritis of the ankle and/or foot (283152026) Arthritis of ankle, right (M19.071) Active confirmed Plan Of Treatment Pending Test Test Name Order Date X ray : Foot, right 3V 04/06/2023 X ray : Ankle, right 3V 04/06/2023 Insurance Providers Payer Name Payer Address Payer Phone Subscriber Number Group Number Insured Name Patient Relationship to Insured Coverage Start Date Coverage End Date [facility] [employer] Claims [address] [place] [id number] [phone] [id number] Greg Matthews Self - patient is the insured Medical (General) History Medical History History ICD Code Anxiety Arthritis Back,Hip,and Knee pain CAD (Cholesterol) Cataracts Depression Diabetic Glaucoma Hepatitis C High blood pressure Keloid/Thick Scar Joint implants/screws Surgical History Surgery Date(Month/Year) knee replacement 1998
== END 2025-02-27 14:20 | disposition home or self-care (01) ==
PROVIDERS: PCP Family Medicine; Visit Provider Student in an Organized Health Care Education/Training Program
DX: I10 Essential (primary) hypertension (principal); E11.9 Type 2 diabetes mellitus without complications; Z86.711 Personal history of pulmonary embolism; G47.30 Sleep apnea, unspecified; F32.A Depression, unspecified; F41.9 Anxiety disorder, unspecified; N40.1 Benign prostatic hyperplasia with lower urinary tract symptoms

== ENCOUNTER → 2025-04-03 15:20 | Outpatient (BNV) | payer OTHER, SELFPAY | PROVIDERS: PCP Student in an Organized Health Care Education/Training Program; Referring Provider Student in an Organized Health Care Education/Training Program; Visit Provider Internal Medicine | DX: I26.99 Other pulmonary embolism without acute cor pulmonale (principal); Z79.01 Long term (current) use of anticoagulants | CPT/HCPCS: 99204 ==